=== PATIENT | female | born 1960 | race Hispanic/Latino ===

== ENCOUNTER → 2017-08-29 | Outpatient (CLI) | payer OTHER ==
[~2017-08-29] MED LIST: AMLO10TA2 PO; BI EST AD; BRIM5DRO OP; PROG200C7 PO; SPIR25TA4 PO
== END | disposition home or self-care (01) ==
LOC: OIH 12:39
PROVIDERS: ATTEND Internal Medicine Cardiovascular Disease
DX: Z13.6 Encounter for screening for cardiovascular disorders (principal)
CPT/HCPCS: 75571